=== PATIENT | male | born 1950 | race Caucasian/White ===

== ENCOUNTER 2020-01-03 09:00 | Outpatient (CLI) | payer MEDICARE, OTHER ==
[2012-05-25 07:26] VITALS: BMI 21.9
== END 2020-01-03 10:00 | disposition home or self-care (01) ==
LOC: D.MAMMO 09:00
PROVIDERS: ATTEND Nurse Practitioner Family
DX: N63.21 Unspecified lump in the left breast, upper outer quadrant (principal)